=== PATIENT | female | born 1940 | race Caucasian/White ===

== ENCOUNTER → 2016-10-24 | Outpatient (CLI) | payer OTHER ==
--- NOTE | 2016-10-28 11:37 | DIAGNOSTIC IMAGING REPORT ---
SINUSES MIN 3 VIEWS ROUTINE CLINICAL HISTORY: J01.00 sinus pressure COMPARISON STUDY: 01/25/2015 FINDINGS: No air-fluid levels are visualized. There is no significant mucoperiosteal thickening. IMPRESSION: No conventional radiographic evidence of sinusitis. Electronically signed by: Karthik Pantoja M.D. 10/28/2016 11:36 AM Dictated Date/Time: 10/28/2016 11:35 AM
== END | disposition home or self-care (01) ==
LOC: C.RAD 13:37
PROVIDERS: ATTEND Family Medicine
DX: J01.00 Acute maxillary sinusitis, unspecified (principal)

== ENCOUNTER → 2017-02-14 | Outpatient (CLI) | payer OTHER ==
[2017-02-14 16:08] LABS: BLOOD UREA NITROGEN 16 mg/dl (7-18); CREATININE 0.92 mg/dl (0.60-1.20)
== END | disposition home or self-care (01) ==
LOC: C.LAB 14:32
PROVIDERS: ATTEND Otolaryngology
DX: G44.209 Tension-type headache, unspecified, not intractable (principal); J31.0 Chronic rhinitis

== ENCOUNTER → 2017-02-17 | Outpatient (CLI) | payer OTHER ==
[~2017-02-17] MED LIST: GADAVIST IV PRN
--- NOTE | 2017-02-17 15:48 | DIAGNOSTIC IMAGING REPORT ---
MRI OF THE BRAIN AND IACS WITHOUT AND WITH IV CONTRAST CLINICAL HISTORY: HEADACHES,SINUSITIS COMPARISON STUDY: No previous studies for comparison. TECHNIQUE: MRI of the brain was performed from the vertex to the skull base utilizing various T1 and T2 weighted sequences. Following the IV administration of 6 mL of Gadavist contrast, additional enhanced images were obtained. FINDINGS: Sagittal T1, axial diffusion, proton density and T2 weighted axial, coronal FLAIR, and pre and post axial T1-weighted images were acquired. These were supplemented with post gadolinium coronal T1 weighted images. No intra or extra-axial mass lesions are visualized. Axial diffusion-weighted images reveal no evidence of acute or subacute infarction. There is no evidence of ventricular dilatation. Proton density T2-weighted and FLAIR images reveal scattered foci of increased T2 signal within the white matter, likely on a small vessel basis. There are no abnormal flow voids. There is no evidence of pathologic enhancement. No cerebellopontine angle masses are visualized. The 7th and 8th nerve complexes appear normal bilaterally. IMPRESSION: 1. No acute intracranial findings 2. No evidence of acute or subacute infarction 3. No evidence of intracranial mass. Electronically signed by: Karthik Pantoja M.D. 02/17/2017 3:47 PM Dictated Date/Time: 02/17/2017 3:43 PM
== END | disposition home or self-care (01) ==
LOC: C.MRI 14:00
PROVIDERS: ATTEND Otolaryngology
DX: J31.0 Chronic rhinitis (principal); G44.209 Tension-type headache, unspecified, not intractable